=== PATIENT | female | born 1960 | race Caucasian/White ===

== ENCOUNTER → 2017-06-27 | Outpatient (CLI) | payer OTHER | END | disposition home or self-care (01) | LOC: CFH 14:28 | PROVIDERS: ATTEND Nurse Practitioner Primary Care | DX: R05 Cough (principal); R53.83 Other fatigue; G35 Multiple sclerosis; G47.30 Sleep apnea, unspecified; H53.9 Unspecified visual disturbance; J30.9 Allergic rhinitis, unspecified; Z85.3 Personal history of malignant neoplasm of breast; J01.90 Acute sinusitis, unspecified | CPT/HCPCS: 71020 ==